=== PATIENT | female | born 1970 | race American Indian/Alaskan Native ===

== ENCOUNTER 2017-12-27 19:54 | Emergency (ER) | payer OTHER, BC ==
[2017-12-28] MEDS ORDERED: FLEXERIL PO ONE (00:09)
[2017-12-28] MEDS ORDERED: TORADOL IM ONE (00:09)
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
[2017-12-28 01:28] VITALS: BP 142/90
== END 2017-12-28 01:28 | disposition home or self-care (01) ==
LOC: ED 19:54
DX: S39.012A Strain of muscle, fascia and tendon of lower back, initial encounter (principal); V49.59XA Passenger injured in collision with other motor vehicles in traffic accident, initial encounter; X58.XXXA Exposure to other specified factors, initial encounter; Y93.89 Activity, other specified; Y92.89 Other specified places as the place of occurrence of the external cause; Y99.8 Other external cause status
CPT/HCPCS: 96372; 99282; J1885

== ENCOUNTER 2019-02-04 19:28 | Emergency (ER) | payer BC, OTHER ==
[2019-02-04 19:38] VITALS: BP 152/65
--- NOTE | 2019-02-04 19:41 | Event Note ---
ED Screening Note Date of service: 02/04/19 Time: 19:37 ED Screening Note: 48 y/o female comes in for rt knee giving out. No trauma. This initial assessment/diagnostic orders/clinical plan/treatment(s) is/are subject to change based on patients health status, clinical progression and re-assessment by fellow clinical providers in the ED. Further treatment and workup at subsequent clinical providers discretion. Patient/guardian urged not to elope from the ED as their condition may be serious if not clinically assessed and managed. Initial orders include:
[2019-02-04] MEDS ORDERED: ULTRAM PO ONE (19:58)
--- NOTE | 2019-02-04 20:14 | XRay Report ---
PROCEDURE: XR KNEE 3V RT TECHNIQUE: Right knee radiographs, AP, lateral, and sunrise views. HISTORY: rt knee keeps given out. COMPARISONS: None FINDINGS: Fracture (s) and/or Dislocation(s): None Alignment: Normal Joint space(s): Normal Soft tissues: Normal Bone mineralization: Normal Foreign bodies: None IMPRESSION: Normal Examination This document is electronically signed by Timo Smith MD., February 04 2019 08:12:26 PM ET
--- NOTE | 2019-02-04 20:21 | Emergency Department Report ---
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 there is no swelling or numbness no tingling none family MD Complaint: knee injury Onset/Timin -: year(s) Injury: Knee: Right Type of Injury: hyperextension Place: work Severity: moderate Severity scale (0 -10): 5 Improves With: NSAID Worsens With: weight bearing, movement, palpation Context: walking Associated Symptoms: swelling, ambulatory - Related Data Previous Rx's Medication Instructions Recorded Last Taken Type Cyclobenzaprine [Flexeril 10 MG 10 mg PO TID #15 tablet 12/28/17 Unknown Rx TAB] Albuterol Sulfate [Ventolin HFA] 2 puff IH Q4H PRN #1 hfa.aer.ad 07/06/18 Unknown Rx predniSONE [Deltasone] 3 tab PO QDAY 4 Days #12 tab 07/06/18 Unknown Rx Menthol/Camphor [[place] 1 applicatio TP BID PRN #1 tube 02/04/19 Unknown Rx Ointment] Naproxen [Naprosyn] 500 mg PO BID PRN #30 tablet 02/04/19 Unknown Rx Allergies Allergy/AdvReac Type Severity Reaction Status Date / Time acetaminophen [From Vicodin] Allergy Itching Verified 12/27/17 20:26 gentamicin Allergy Itching Verified 12/27/17 20:26 hydrocodone [From Vicodin] Allergy Itching Verified 12/27/17 20:26 latex Allergy Anaphylaxis Verified 12/27/17 20:27 ED Review of Systems ROS: Stated complaint: RT KNEE/DEHYDRATION Other details as noted in HPI Constitutional: denies: chills, fever Eyes: denies: eye pain, eye discharge, vision change ENT: denies: ear pain, throat pain Respiratory: denies: cough, shortness of breath, wheezing Cardiovascular: denies: chest pain, palpitations Endocrine: no symptoms reported Gastrointestinal: denies: abdominal pain, nausea, diarrhea Genitourinary: denies: urgency, dysuria, discharge Musculoskeletal: arthralgia, other (knee pain ). denies: back pain, joint swelling Skin: denies: rash, lesions Neurological: denies: headache, weakness, paresthesias Psychiatric: denies: anxiety, depression Hematological/Lymphatic: denies: easy bleeding, easy bruising ED Past Medical Hx - Past Medical History Previous Medical History?: Yes Hx Asthma: Yes - Surgical History Past Surgical History?: Yes Additional Surgical History: hysterectomy 2016 - Social History Smoking Status: Never Smoker Substance Use Type: Alcohol - Medications Home Medications: Home Medications Medication Instructions Recorded Confirmed Last Taken Type Cyclobenzaprine [Flexeril 10 MG 10 mg PO TID #15 tablet 12/28/17 Unknown Rx TAB] Albuterol Sulfate [Ventolin HFA] 2 puff IH Q4H PRN #1 hfa.aer.ad 07/06/18 Unknown Rx predniSONE [Deltasone] 3 tab PO QDAY 4 Days #12 tab 07/06/18 Unknown Rx Menthol/Camphor [[place] 1 applicatio TP BID PRN #1 tube 02/04/19 Unknown Rx Ointment] Naproxen [Naprosyn] 500 mg PO BID PRN #30 tablet 02/04/19 Unknown Rx ED Physical Exam - General Limitations: No Limitations General appearance: alert, in no apparent distress - Head Head exam: Present: atraumatic, normocephalic - Eye Eye exam: Present: normal appearance, PERRL, EOMI Pupils: Present: normal accommodation - ENT ENT exam: Present: mucous membranes moist - Neck Neck exam: Present: normal inspection, full ROM, lymphadenopathy - Respiratory Respiratory exam: Present: normal lung sounds bilaterally. Absent: respiratory distress, wheezes, stridor - Cardiovascular Cardiovascular Exam: Present: regular rate, normal rhythm. Absent: systolic murmur, diastolic murmur, rubs, gallop - GI/Abdominal GI/Abdominal exam: Present: soft, normal bowel sounds. Absent: distended, tenderness, rigid, bruit, hernia - Rectal Rectal exam: Present: deferred - Extremities Exam Extremities exam: Present: full ROM, tenderness, normal capillary refill. Absent: pedal edema, joint swelling, calf tenderness - Expanded Lower Extremity Exam Right Knee exam: Present: tenderness, pain w/ pronation/supination, full knee extension. Absent: swelling, abrasion, laceration, ecchymosis, deformity, crepidus, dislocation, erythema, effusion, posterior draw sign, pain/laxity with valgus, pain/laxity with varus Lower Leg exam: Present: full ROM. Absent: tenderness, swelling Ankle exam: Present: full ROM. Absent: tenderness, swelling Foot/Toe exam: Present: normal inspection, full ROM. Absent: tenderness, swelling Neuro vascular tendon exam: Absent: pulse deficit, motor deficit, sensory deficit, tendon deficit Gait: Positive: observed and normal - Back Exam Back exam: Present: normal inspection, full ROM. Absent: CVA tenderness (R), CVA tenderness (L), muscle spasm, paraspinal tenderness, vertebral tenderness, rash noted - Neurological Exam Neurological exam: Present: alert, oriented X3, CN II-XII intact, normal gait, reflexes normal. Absent: motor sensory deficit - Psychiatric Psychiatric exam: Present: normal affect, normal mood - Skin Skin exam: Present: warm, dry, intact, normal color. Absent: rash ED Course Vital Signs 02/04/19 19:36 Temperature 98.9 F Pulse Rate 64 Respiratory 18 Rate Blood Pressure 152/65 O2 Sat by Pulse 99 Oximetry ED Lower Extremity MDM - Radiology Data Radiology results: report reviewed, image reviewed interpreted by me: Ordering Physician: NUZHAT KNOTT Date of Service: 02/04/19 Procedure(s): XR knee 3V RT Accession Number(s): [id number] cc: NUZHAT KNOTT Fluoro Time In Minutes: PROCEDURE: XR KNEE 3V RT TECHNIQUE: Right knee radiographs, AP, lateral, and sunrise views. HISTORY: rt knee keeps given out. COMPARISONS: None FINDINGS: Fracture (s) and/or Dislocation(s): None Alignment: Normal Joint space(s): Normal Soft tissues: Normal Bone mineralization: Normal Foreign bodies: None IMPRESSION: Normal Examination This document is electronically signed by Timo Smith MD., February 04 2019 08:12:26 PM ET Transcribed By: [facility] Dictated By: TIMO SMITH Electronically Authenticated By: TIMO SMITH Signed Date/Time: 02/04/192013 DD/ 09 TD/TT: 02/04/192010 - Medical Decision Making Knee x-ray is normal. No fracture no soft tissue abnormality is stable on exam no catch no pop, no drawer NSAIDs.nsaid analgesic balm, ricr therapy follow up with pcp in 2-3 days return to ed if symptoms worsen. pt verbalized agreement and understanding of discharge plan. Critical care attestation.: If time is entered above; I have spent that time in minutes in the direct care of this critically ill patient, excluding procedure time. ED Disposition Clinical Impression: Knee strain Qualifiers: Encounter type: initial encounter Laterality: right Qualified Code(s): S86.911A - Strain of unspecified muscle(s) and tendon(s) at lower leg level, right leg, initial encounter Disposition: TO HOME OR SELFCARE Is pt being admited?: No Does the pt Need Aspirin: No Condition: Stable Instructions: Knee Exercises (GEN), Knee Sprain (ED), RICE Therapy (ED) Additional Instructions: hydrate as directed 8 glasse of water daily minimum Prescriptions: Naproxen [Naprosyn] 500 mg PO BID PRN #30 tablet PRN Reason: pain Menthol/Camphor [[place] Ointment] 1 applicatio TP BID PRN #1 tube PRN Reason: pain Referrals: DONNA HENRY MD [Staff Physician] - 3-5 Days [facility] [Outside] - 3-5 Days Forms: Work/School Release Form(ED) Time of Disposition: 20:29
== END 2019-02-04 20:52 | disposition home or self-care (01) ==
LOC: ED 19:28
DX: S86.911A Strain of unspecified muscle(s) and tendon(s) at lower leg level, right leg, initial encounter (principal); J45.909 Unspecified asthma, uncomplicated; Z90.710 Acquired absence of both cervix and uterus; Z88.1 Allergy status to other antibiotic agents; Z88.5 Allergy status to narcotic agent; Z91.040 Latex allergy status; W94.11XA Exposure to residence or prolonged visit at high altitude, initial encounter; Y93.01 Activity, walking, marching and hiking; Y92.69 Other specified industrial and construction area as the place of occurrence of the external cause; Y99.8 Other external cause status
CPT/HCPCS: 99283

== ENCOUNTER 2019-02-27 17:36 | Emergency (ER) | payer OTHER ==
[2019-02-27 18:24] VITALS: BP 162/88
[2019-02-27] MEDS ORDERED: TETRACAINE 0.5% OU ONE (18:24)
--- NOTE | 2019-02-27 18:24 | Event Note ---
ED Screening Note ED Screening Note: States a bug flew into her eye yesterday states dust flew into it today states she has been rubbing the eye right eye pain and erythema watery drainage no vision changes states she wears contacts, has them in still no PMHx allergy to hydrocodone and gentamicin This initial assessment/diagnostic orders/clinical plan/treatment(s) is/are subject to change based on patients health status, clinical progression and re- assessment by fellow clinical providers in the ED. Further treatment and workup at subsequent clinical providers discretion. Patient/guardian urged not to elope from the ED as their condition may be serious if not clinically assessed and managed. Initial orders include: needs wood lamp evaluation and visual acuity
[2019-02-27] MEDS ORDERED: FUL-GLO OP ONE (18:25)
--- NOTE | 2019-02-27 20:10 | Emergency Department Report ---
ED Eye Problem HPI - General Chief complaint: Eye Problems Stated complaint: BUG FLEW IN EYE Time Seen by Provider: 02/27/19 18:21 Source: patient Mode of arrival: Ambulatory Limitations: No Limitations - History of Present Illness Initial comments: Patient is a 48-year-old -[place] female with no past medical history who presents to the ED with complaint of acute onset severe right eye pain and photophobia and redness as well as purulent discharge after an insect accidentally flew into her right eye causing pain 24 hours ago. Patient states that she has been experiencing foreign body sensation in that eye and now has photophobia and blurry vision. Patient denies headache, vision loss, nausea, vomiting, fever, chills, cough, nasal and sinus congestion over dizziness. MD chief complaint: eye pain (RIGHT), eye redness, eye injury -: Sudden, hour(s) (24) Location: right eye Place: home If Injury: direct trauma (Iinsect entered right eye) Eye Symptoms: burning, redness, pain, foreign body sensation, discharge, photophobia Severity: severe Severity scale (0 -10): 7 If Pain, Quality: sharp, aching Consistency: constant Context: trauma (insect entered right eye), injury Associated Symptoms: none Treatments Prior to Arrival: irrigated eye - Related Data Patient Tetanus UTD: Yes Previous Rx's Medication Instructions Recorded Last Taken Type Cyclobenzaprine [Flexeril 10 MG 10 mg PO TID #15 tablet 12/28/17 Unknown Rx TAB] Albuterol Sulfate [Ventolin HFA] 2 puff IH Q4H PRN #1 hfa.aer.ad 07/06/18 Unknown Rx predniSONE [Deltasone] 3 tab PO QDAY 4 Days #12 tab 07/06/18 Unknown Rx Meloxicam [Mobic] 7.5 mg PO QDAY #30 tablet 02/04/19 Unknown Rx Menthol/Camphor [[place] 1 applicatio TP BID PRN #1 tube 02/04/19 Unknown Rx Ointment] Naproxen [Naprosyn] 500 mg PO BID PRN #30 tablet 02/04/19 Unknown Rx Ciprofloxacin HCl [Ciloxan] 1 - 2 drops OP Q4H #5 ml 02/27/19 Unknown Rx traMADol [Ultram] 50 mg PO Q6HR PRN #15 tablet 02/27/19 Unknown Rx Allergies Allergy/AdvReac Type Severity Reaction Status Date / Time acetaminophen [From Vicodin] Allergy Itching Verified 02/27/19 17:37 gentamicin Allergy Itching Verified 02/27/19 17:37 hydrocodone [From Vicodin] Allergy Itching Verified 02/27/19 17:37 latex Allergy Anaphylaxis Verified 02/27/19 17:37 ED Review of Systems ROS: Stated complaint: BUG FLEW IN EYE Other details as noted in HPI Constitutional: denies: chills, fever Eyes: eye pain (right), eye discharge (right), other (Irritated and painful right eye with purulent discharge). denies: vision change ENT: denies: ear pain, throat pain Respiratory: denies: cough, shortness of breath, SOB with exertion, wheezing Cardiovascular: denies: chest pain, palpitations Endocrine: no symptoms reported. denies: flushing, intolerance to cold, increased hunger, increased thirst, increased urine, unexplained weight gain Gastrointestinal: denies: abdominal pain, nausea, diarrhea Genitourinary: denies: urgency, dysuria, discharge Musculoskeletal: denies: back pain, joint swelling, arthralgia Skin: denies: rash, lesions Neurological: denies: headache, weakness, paresthesias Psychiatric: denies: anxiety, depression Hematological/Lymphatic: denies: easy bleeding, easy bruising ED Past Medical Hx - Past Medical History Previous Medical History?: Yes Hx Asthma: Yes - Surgical History Past Surgical History?: Yes Additional Surgical History: hysterectomy 2016 - Social History Smoking Status: Never Smoker Substance Use Type: Marijuana - Medications Home Medications: Home Medications Medication Instructions Recorded Confirmed Last Taken Type Cyclobenzaprine [Flexeril 10 MG 10 mg PO TID #15 tablet 12/28/17 Unknown Rx TAB] Albuterol Sulfate [Ventolin HFA] 2 puff IH Q4H PRN #1 hfa.aer.ad 07/06/18 Unknown Rx predniSONE [Deltasone] 3 tab PO QDAY 4 Days #12 tab 07/06/18 Unknown Rx Meloxicam [Mobic] 7.5 mg PO QDAY #30 tablet 02/04/19 Unknown Rx Menthol/Camphor [[place] 1 applicatio TP BID PRN #1 tube 02/04/19 Unknown Rx Ointment] Naproxen [Naprosyn] 500 mg PO BID PRN #30 tablet 02/04/19 Unknown Rx Ciprofloxacin HCl [Ciloxan] 1 - 2 drops OP Q4H #5 ml 02/27/19 Unknown Rx traMADol [Ultram] 50 mg PO Q6HR PRN #15 tablet 02/27/19 Unknown Rx ED Physical Exam - General Limitations: No Limitations General appearance: alert, in no apparent distress - Head Head exam: Present: atraumatic, normocephalic, normal inspection - Eye Eye exam: Present: normal appearance, PERRL, EOMI, other (Erythematous right conjunctiva and sclera with purulent discharge, and anterior corneal abrasion) Pupils: Present: normal accommodation - ENT ENT exam: Present: normal exam, normal orophraynx, mucous membranes moist, TM's normal bilaterally, normal external ear exam - Neck Neck exam: Present: normal inspection, full ROM - Respiratory Respiratory exam: Present: normal lung sounds bilaterally. Absent: respiratory distress, wheezes, rales, rhonchi, accessory muscle use, decreased breath sounds - Cardiovascular Cardiovascular Exam: Present: regular rate, normal rhythm, normal heart sounds. Absent: systolic murmur, diastolic murmur, rubs, gallop - GI/Abdominal GI/Abdominal exam: Present: soft, normal bowel sounds. Absent: distended, tenderness, guarding, rebound, hyperactive bowel sounds, hypoactive bowel sounds, organomegaly - Rectal Rectal exam: Present: deferred - Extremities Exam Extremities exam: Present: normal inspection, full ROM, normal capillary refill - Back Exam Back exam: Present: normal inspection, full ROM. Absent: CVA tenderness (L), muscle spasm, paraspinal tenderness, vertebral tenderness - Neurological Exam Neurological exam: Present: alert, oriented X3, CN II-XII intact, normal gait, reflexes normal - Psychiatric Psychiatric exam: Present: normal affect, normal mood - Skin Skin exam: Present: warm, dry, intact, normal color. Absent: rash ED Course Vital Signs 02/27/19 18:22 Temperature 98.6 F Pulse Rate 62 Respiratory 16 Rate Blood Pressure 162/88 [Right] O2 Sat by Pulse 100 Oximetry - Reevaluation(s) Reevaluation #1: 02/27/19 20:12 Patient is alert and oriented 3 and is not in distress but in pain. Tetracaine 0.5% ophthalmic solution drops were added to the right eye course local anesthesia, and on reevaluation, patient's pain was well controlled. Patient was treated for pain in the ED and Wood's lamp exam shows anterior right corneal abrasion with a significant right conjunctival and sclera erythema and purulent discharge. Patient was discharged home on antibiotic eyedrops and pain medications and [facility]. Patient is advised to return to the ED immediately if symptoms get worse. Otherwise patient is advised to follow up with her primary care physician in 3-5 days for reevaluation. ED Medical Decision Making - Medical Decision Making Patient is alert and oriented 3 and is not in distress but in pain. Tetracaine 0.5% ophthalmic solution drops were added to the right eye course local anesthesia, and on reevaluation, patient's pain was well controlled. Patient was treated for pain in the ED and Wood's lamp exam shows anterior right corneal abrasion with a significant right conjunctival and sclera erythema and purulent discharge. Patient was discharged home on antibiotic eyedrops and pain medications and referred [facility] locally for follow-up. Patient is advised to return to the ED immediately if symptoms get worse. Otherwise patient is advised to follow up with her primary care physician in 3-5 days for reevaluation. - Differential Diagnosis acute conjunctivitis; right eye injury; corneal abrasion, keratitis Critical care attestation.: If time is entered above; I have spent that time in minutes in the direct care of this critically ill patient, excluding procedure time. ED Disposition Clinical Impression: Injury of conjunctiva and corneal abrasion Qualifiers: Encounter type: initial encounter Laterality: right Qualified Code(s): S05.01XA - Injury of conjunctiva and corneal abrasion without foreign body, right eye, initial encounter Acute conjunctivitis of right eye Qualifiers: Acute conjunctivitis type: bacterial Qualified Code(s): H10.31 - Unspecified acute conjunctivitis, right eye Disposition: DC-01 TO HOME OR SELFCARE Is pt being admited?: No Does the pt Need Aspirin: No Condition: Stable Instructions: Conjunctivitis (ED), Corneal Abrasion (ED) Additional Instructions: Take medications with food, apply the antibiotic eyedrops to the affected eye as advised. Follow up with the [facility] as advised, and follow up with regular primary care physician 5-7 days for reevaluation. Return to the ED immediately if symptoms get worse. Prescriptions: Ciprofloxacin HCl [Ciloxan] 1 - 2 drops OP Q4H #5 ml traMADol [Ultram] 50 mg PO Q6HR PRN #15 tablet PRN Reason: Pain Referrals: ZHANG REYES MD [Staff Physician] - 3-5 Days [facility] [Outside] - 3-5 Days Time of Disposition: 20:18 Print Language: GUATEMALAN
[2019-02-27] MEDS ORDERED: ULTRAM PO ONE (20:25)
== END 2019-02-27 20:39 | disposition home or self-care (01) ==
LOC: ED 17:36
DX: S05.01XA Injury of conjunctiva and corneal abrasion without foreign body, right eye, initial encounter (principal); H10.31 Unspecified acute conjunctivitis, right eye; Z79.899 Other long term (current) drug therapy; Z88.8 Allergy status to other drugs, medicaments and biological substances; Z88.1 Allergy status to other antibiotic agents; Z91.040 Latex allergy status; X58.XXXA Exposure to other specified factors, initial encounter; Y93.89 Activity, other specified; Y92.89 Other specified places as the place of occurrence of the external cause; Y99.8 Other external cause status
CPT/HCPCS: 99282

== ENCOUNTER 2019-09-16 18:19 | Emergency (ER) | payer OTHER ==
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
[2019-09-16 21:11] VITALS: BP 141/79
--- NOTE | 2019-09-16 21:35 | XRay Report ---
EXAMINATION: Left shoulder radiograph, 3 views CLINICAL INFORMATION: Left shoulder pain after trauma COMPARISON: None. FINDINGS: There is no evidence of acute fracture or dislocation of the left shoulder. Signer Name: Angela Mcdaniels MD Signed: 09/16/2019 9:31 PM Workstation Name: [id number]
--- NOTE | 2019-09-16 22:11 | Emergency Department Report ---
HPI - General Chief Complaint: Shoulder Injury Time Seen by Provider: 09/16/19 21:57 - HPI HPI: 48-year-old female presents to the emergency department with a complaint of some pain to the left arm that starts around the armpit and goes d own to the fingers middle fingers. 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 It hurts to move at the shoulder and elbow joints, as well as to move the middle 2 fingers. No past mental history. She has not taken anything for her symptoms prior to presentation. She is right-hand dominant. ED Past Medical Hx - Past Medical History Hx Asthma: Yes - Surgical History Additional Surgical History: hysterectomy 2016 - Social History Smoking Status: Never Smoker Substance Use Type: None, Marijuana - Medications Home Medications: Home Medications Medication Instructions Recorded Confirmed Last Taken Type Cyclobenzaprine [Flexeril] 10 mg PO TID PRN #10 tablet 05/08/19 Unknown Rx predniSONE [Deltasone] 20 mg PO DAILY #5 tablet 05/08/19 Unknown Rx ED Review of Systems ROS: Stated complaint: POSS BROKEN LT ARM Other details as noted in HPI Comment: All other systems reviewed and negative Constitutional: denies: chills, fever Musculoskeletal: arthralgia, myalgia. denies: joint swelling Skin: denies: rash, lesions Neurological: denies: numbness, paresthesias Physical Exam - Physical Exam Vital Signs: Vital Signs 09/16/19 20:52 Temperature 98.7 F Pulse Rate 63 Respiratory 16 Rate Blood Pressure 141/79 O2 Sat by Pulse 100 Oximetry Physical Exam: GENERAL: The patient is well-developed well-nourished. HEENT: Normocephalic. Atraumatic. Patient has moist mucous membranes. EYES: Extraocular motions are intact. NECK: Supple. Trachea is midline. CHEST/LUNGS: Clear to auscultation. There is no respiratory distress noted. HEART/CARDIOVASCULAR: Regular. There is no tachycardia. There is no murmur. ABDOMEN: There is no abdominal distention. SKIN:Skin is warm and dry. . NEURO: The patient is awake, alert, and oriented. The patient is cooperative. The patient has no focal neurologic deficits. Normal speech. MUSCULOSKELETAL: There is some tenderness palpation to the inside of the left upper arm, midforearm and with manipulation of the left middle and ring fingers, but no obvious deformity. Radial pulse +2 over 4 and capillary refill less than 2 seconds. ED Course Vital Signs 09/16/19 20:52 Temperature 98.7 F Pulse Rate 63 Respiratory 16 Rate Blood Pressure 141/79 O2 Sat by Pulse 100 Oximetry ED Medical Decision Making - Radiology Data Radiology results: image reviewed interpreted by me: X-ray left shoulder does not show any fracture, dislocation, or any acute process. - Medical Decision Making This patient presents with some complaint of pain that starts in the left upper arm, almost towards the armpit, and radiates down the arm. No obvious deformity. She appears to have full range of motion. She is neurovascularly intact. X-ray of the left shoulder was done through triage does not show any fracture, dislocation, or any acute process. She has some mild tenderness to palpation around the mid left forearm but refuses any further x-ray imaging and feels that there is no fracture. She was placed in a sling and given a referral for an orthopedist. She will return to the ER with any worsening of her symptoms or any acute distress. - Differential Diagnosis fracture, dislocation, nerve impingement, contusion, sprain Critical Care Time: No Critical care attestation.: If time is entered above; I have spent that time in minutes in the direct care of this critically ill patient, excluding procedure time. ED Disposition Clinical Impression: Left arm pain, Arm sprain Disposition: TO HOME OR SELFCARE Is pt being admited?: No Condition: Stable Instructions: Arthralgia (ED) Additional Instructions: All up with a primary care physician in the next few days. I am also given you a referral for 2 different local orthopedic groups, Dr. Sanchez and [facility], to follow up regarding your arm pain. Return to the emergency Department with any worsening of your symptoms or any acute distress. Referrals: NARCISA POOLE MD [Primary Care Provider] - 2-3 Days DONNA SANCHEZ MD [Staff Physician] - 2-3 Days [facility] [Provider Group] - 2-3 Days Time of Disposition: 22:12
== END 2019-09-16 22:23 | disposition home or self-care (01) ==
LOC: ED 18:19
DX: S43.402A Unspecified sprain of left shoulder joint, initial encounter (principal); J45.909 Unspecified asthma, uncomplicated; Z90.710 Acquired absence of both cervix and uterus; F12.10 Cannabis abuse, uncomplicated; Z79.899 Other long term (current) drug therapy; Z88.6 Allergy status to analgesic agent; Z88.1 Allergy status to other antibiotic agents; Z88.5 Allergy status to narcotic agent; Z91.040 Latex allergy status; X58.XXXA Exposure to other specified factors, initial encounter; Y93.89 Activity, other specified; Y92.89 Other specified places as the place of occurrence of the external cause; Y99.8 Other external cause status

== ENCOUNTER 2019-09-30 18:10 | Emergency (ER) | payer OTHER ==
[2019-09-30 18:23] VITALS: BP 149/88
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
== END 2019-09-30 21:46 | disposition home or self-care (01) ==
LOC: ED 18:10
DX: M54.2 Cervicalgia (principal); R51 Headache; Z88.8 Allergy status to other drugs, medicaments and biological substances; V49.49XA Driver injured in collision with other motor vehicles in traffic accident, initial encounter; Y93.89 Activity, other specified; Y92.410 Unspecified street and highway as the place of occurrence of the external cause; Y99.8 Other external cause status
CPT/HCPCS: 99282

== ENCOUNTER 2020-04-05 16:29 | Emergency (ER) | payer OTHER ==
--- NOTE | 2020-04-05 19:16 | Event Note ---
ED Screening Note Date of service: 04/05/20 Time: 19:16 ED Screening Note: c/o right knee pain x today states knee suddenly gave out while walking anterior knee pain This initial assessment/diagnostic orders/clinical plan/treatment(s) is/are subject to change based on patients health status, clinical progression and re- assessment by fellow clinical providers in the ED. Further treatment and workup at subsequent clinical providers discretion. Patient/guardian urged not to elope from the ED as their condition may be serious if not clinically assessed and managed. Initial orders include: xr
[2020-04-05 19:34] VITALS: BP 138/82
--- NOTE | 2020-04-05 19:54 | XRay Report ---
Right knee 3 views INDICATION: Right knee pain. IMPRESSION: No fracture or subluxation of the right knee is identified. Signer Name: Miguel Angel Pierre MD Signed: 04/05/2020 7:50 PM Workstation Name: [id number]
[2020-04-05] MEDS ORDERED: NAPROXEN 500 MG TAB PO ONE (21:34)
--- NOTE | 2020-04-05 21:54 | Emergency Department Report ---
ED Lower Extremity HPI - General Chief Complaint: Extremity Injury, Lower Stated Complaint: RT KNEE PAIN Time Seen by Provider: 04/05/20 19:15 Source: patient Mode of arrival: Ambulatory Limitations: Physical Limitation - History of Present Illness Initial Comments: This is a 49-year-old female nontoxic, well nourished in appearance, no acute signs of distress presents to the ED with c/o of right knee pain 1 day. Patient stated that she injuried her knee today but walking. Patient denies any other trauma. Patient denies any numbness, tingling, fever, chills, nausea, vomiting, chest pain, shortness of breath, headache, stiff neck. Patient denies any joint swelling or joint redness. Patient denies decreased range of motion. Patient stated has decreased gait due to pain. Patient stated allergies to acetaminophen, gentaminc, and hydrocodone, and latex. MD Complaint: knee injury -: days(s) Injury: Knee: Right Severity: mild Severity scale (0 -10): 8 Improves With: immobilization Worsens With: weight bearing, movement, palpation Associated Symptoms: able to partially bear weight. denies: snap/pop sensation, swelling, numbness, tingling, unable to bear weight - Related Data Previous Rx's Medication Instructions Recorded Last Taken Type Cyclobenzaprine [Flexeril] 10 mg PO TID PRN #10 tablet 05/08/19 Unknown Rx predniSONE [Deltasone] 20 mg PO DAILY #5 tablet 05/08/19 Unknown Rx Naproxen 500 mg PO Q12H PRN #12 tablet 04/05/20 Unknown Rx Allergies Allergy/AdvReac Type Severity Reaction Status Date / Time acetaminophen [From Vicodin] Allergy Itching Verified 04/05/20 19:18 gentamicin Allergy Itching Verified 04/05/20 19:18 hydrocodone [From Vicodin] Allergy Itching Verified 04/05/20 19:18 latex Allergy Anaphylaxis Verified 04/05/20 19:18 ED Review of Systems ROS: Stated complaint: RT KNEE PAIN Other details as noted in HPI Constitutional: denies: chills, fever Eyes: denies: eye pain, eye discharge, vision change ENT: denies: ear pain, throat pain Respiratory: denies: cough, shortness of breath, wheezing Cardiovascular: denies: chest pain, palpitations Endocrine: no symptoms reported Gastrointestinal: denies: abdominal pain, nausea, diarrhea Genitourinary: denies: urgency, dysuria, discharge Musculoskeletal: denies: back pain, joint swelling, arthralgia Skin: denies: rash, lesions Neurological: denies: headache, weakness, paresthesias Psychiatric: denies: anxiety, depression Hematological/Lymphatic: denies: easy bleeding, easy bruising ED Past Medical Hx - Past Medical History Hx Asthma: Yes - Surgical History Additional Surgical History: hysterectomy 2016 - Social History Smoking Status: Never Smoker Substance Use Type: Alcohol - Medications Home Medications: Home Medications Medication Instructions Recorded Confirmed Last Taken Type Cyclobenzaprine [Flexeril] 10 mg PO TID PRN #10 tablet 05/08/19 Unknown Rx predniSONE [Deltasone] 20 mg PO DAILY #5 tablet 05/08/19 Unknown Rx Naproxen 500 mg PO Q12H PRN #12 tablet 04/05/20 Unknown Rx ED Physical Exam - General Limitations: Physical Limitation General appearance: alert, in no apparent distress - Head Head exam: Present: atraumatic, normocephalic - Neck Neck exam: Present: normal inspection, full ROM. Absent: tenderness, meningismus, lymphadenopathy - Extremities Exam Extremities exam: Present: normal inspection, full ROM, tenderness, normal capillary refill. Absent: joint swelling, calf tenderness - Expanded Lower Extremity Exam Right Hip exam: Present: normal inspection, full ROM. Absent: tenderness, swelling Upper Leg exam: Present: normal inspection, full ROM. Absent: tenderness, swelling Knee exam: Present: normal inspection, full ROM, tenderness, full knee extension. Absent: swelling, abrasion, laceration, ecchymosis, deformity, crepidus, dislocation, erythema, effusion, pain w/ pronation/supination, posterior draw sign, pain/laxity with valgus, pain/laxity with varus Lower Leg exam: Present: normal inspection, full ROM. Absent: tenderness, swelling Ankle exam: Present: normal inspection, full ROM. Absent: tenderness, swelling Foot/Toe exam: Present: normal inspection, full ROM. Absent: tenderness, swelling Neuro vascular tendon exam: Present: no vascular compromise Gait: Positive: observed and limited by pain - Back Exam Back exam: Present: normal inspection, full ROM. Absent: tenderness, CVA tenderness (R), CVA tenderness (L), muscle spasm, paraspinal tenderness, vertebral tenderness, rash noted - Neurological Exam Neurological exam: Present: alert, oriented X3, normal gait - Psychiatric Psychiatric exam: Present: normal affect, normal mood - Skin Skin exam: Present: warm, dry, intact, normal color. Absent: rash ED Course Vital Signs 04/05/20 19:17 Temperature 98.1 F Pulse Rate 66 Respiratory 18 Rate Blood Pressure 138/82 O2 Sat by Pulse 100 Oximetry - Reevaluation(s) Reevaluation #1: 04/05/20 21:52 Patient is speaking in full sentences with no signs of distress noted. ED Lower Extremity MDM - Radiology Data Referring Physician: VERA BLACKMAN Patient Name: DANI BUCKNER Date of : 1970 Sex: Female Report Date: 2020-04-05 Report Status: Finalized [facility] [address] [place] [address] XRay Report Signed Patient: DANI BUCKNER MR#: [id number] 9 : 1970 Acct:[id number] Age/Sex: 49 / F ADM Date: 04/05/20 Loc: ED Attending Dr: Ordering Physician: VERA BLACKMAN Date of Service: 04/05/20 Procedure(s): XR knee 3V RT Accession Number(s): [id number] cc: VERA BLACKMAN Fluoro Time In Minutes: Right knee 3 views INDICATION: Right knee pain. IMPRESSION: No fracture or subluxation of the right knee is identified. Signer Name: Miguel Angel Pierre MD Signed: 04/05/2020 7:50 PM Workstation Name: [id number] Transcribed By: BC Dictated By: Miguel Angel Pierre MD Electronically Authenticated By: Miguel Angel Pierre MD Signed Date/Time: 04/05/201949 DD/ 48 TD/TT: - Medical Decision Making This is a 49-year-old female that presents with right knee strain. Patient is stable and was examined by me. I referred patient to an orthopedic doctor for further evaluation for possible MRI. X-ray has been obtained and dictated by the radiologist. Patient is notified of the x-ray report with noted by the patient. Patient does have normal gait with no tenderness and no joint swelling. No ecchymosis. no joint redness or swelling. Not warm to touch. No signs of cellulites present. Patient received a knee immobilize and crutches and was educated by RN how to use crutches. Patient was instructed to RICE therapy. Patient received Nparoxen for pain. Patient is discharged with Naproxen. At time of discharge, the patient does not seem toxic or ill in appearance. No acute signs of distress noted. Patient agrees to discharge treatment plan of care. No further questions noted by the patient. Critical care attestation.: If time is entered above; I have spent that time in minutes in the direct care of this critically ill patient, excluding procedure time. ED Disposition Clinical Impression: Strain of right knee Qualifiers: Encounter type: initial encounter Qualified Code(s): S86.911A - Strain of unspecified muscle(s) and tendon(s) at lower leg level, right leg, initial encounter Disposition: TO HOME OR SELFCARE Is pt being admited?: No Does the pt Need Aspirin: No Condition: Stable Instructions: Knee Pain (ED), Knee Immobilizer (ED), Crutch Instructions (ED), RICE Therapy (ED) Additional Instructions: Follow-up with a orthopedic doctor in 3-5 days or if symptoms worsen and continue return to emergency room as soon as possible. No physical activity that extremity until cleared by orthopedic doctor Prescriptions: Naproxen 500 mg PO Q12H PRN #12 tablet PRN Reason: Pain , Severe (7-10) Referrals: [facility], [Primary Care Provider] - 3-5 Days DONNA HENRY MD [Staff Physician] - 3-5 Days Forms: Work/School Release Form(ED) Time of Disposition: 21:55
== END 2020-04-05 22:45 | disposition home or self-care (01) ==
LOC: ED 16:29
DX: S86.911A Strain of unspecified muscle(s) and tendon(s) at lower leg level, right leg, initial encounter (principal); J45.909 Unspecified asthma, uncomplicated; Z90.710 Acquired absence of both cervix and uterus; Z79.899 Other long term (current) drug therapy; Z91.040 Latex allergy status; Z88.8 Allergy status to other drugs, medicaments and biological substances; X58.XXXA Exposure to other specified factors, initial encounter; Y93.89 Activity, other specified; Y92.89 Other specified places as the place of occurrence of the external cause; Y99.8 Other external cause status

== ENCOUNTER 2020-05-19 05:38 | Emergency (ER) | payer OTHER ==
[2020-05-19 06:04] VITALS: BP 116/62
== END 2020-05-19 08:25 | disposition left against medical advice (07) ==
LOC: ED 05:38
DX: M54.5 Low back pain (principal); Z53.21 Procedure and treatment not carried out due to patient leaving prior to being seen by health care provider

== ENCOUNTER 2020-12-15 12:52 | Emergency (ER) | payer OTHER ==
[2020-12-15 13:51] VITALS: BP 148/73
--- NOTE | 2020-12-15 14:37 | Emergency Department Report ---
ED Back Pain/Injury HPI - General Chief Complaint: Back Pain/Injury Stated Complaint: BACK PAIN Time Seen by Provider: 12/15/20 13:53 Source: patient Limitations: No Limitations - History of Present Illness Initial Comments: Patient is a 50-year-old female presents emergency room complaints of right lower back pain that radiates down her right leg that began earlier today. 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 She denies falling onto the ground or any significant trauma. She denies any fever, nausea, vomiting, diarrhea, abdominal pain, urinary symptoms, numbness, weakness, bowel or bladder incontinence. Past medical history of asthma. She states that she had a hysterectomy. Allergy to hydrocodone, gentamicin, latex, adhesive tape. - Related Data Previous Rx's Medication Instructions Recorded Last Taken Type Cyclobenzaprine [Flexeril] 10 mg PO TID PRN #10 tablet 05/08/19 Unknown Rx predniSONE [Deltasone] 20 mg PO DAILY #5 tablet 05/08/19 Unknown Rx Naproxen 500 mg PO Q12H PRN #12 tablet 04/05/20 Unknown Rx Menthol/Camphor [[place] Gypsy 1 applicatio TP BID #18 oint...g. 12/15/20 Unknown Rx Ointment] Naproxen [EC-Naprosyn] 500 mg PO BID PRN #14 tablet. 12/15/20 Unknown Rx methOCARBAMOL [Robaxin TAB] 500 mg PO BID PRN #14 tab 12/15/20 Unknown Rx Allergies Allergy/AdvReac Type Severity Reaction Status Date / Time acetaminophen [From Vicodin] Allergy Itching Verified 12/15/20 13:52 gentamicin Allergy Itching Verified 12/15/20 13:52 hydrocodone [From Vicodin] Allergy Itching Verified 12/15/20 13:52 latex Allergy Anaphylaxis Verified 12/15/20 13:52 adhesive tape AdvReac Itching Verified 12/15/20 13:52 ED Review of Systems ROS: Stated complaint: BACK PAIN Other details as noted in HPI Comment: All other systems reviewed and negative ED Past Medical Hx - Past Medical History Hx Asthma: Yes Additional medical history: Right Knee Injury - Surgical History Additional Surgical History: hysterectomy, Tubal Ligation, - Social History Smoking Status: Never Smoker Substance Use Type: None - Medications Home Medications: Home Medications Medication Instructions Recorded Confirmed Last Taken Type Cyclobenzaprine [Flexeril] 10 mg PO TID PRN #10 tablet 05/08/19 Unknown Rx predniSONE [Deltasone] 20 mg PO DAILY #5 tablet 05/08/19 Unknown Rx Naproxen 500 mg PO Q12H PRN #12 tablet 04/05/20 Unknown Rx Menthol/Camphor [[place] Gypsy 1 applicatio TP BID #18 oint...g. 12/15/20 Unknown Rx Ointment] Naproxen [EC-Naprosyn] 500 mg PO BID PRN #14 tablet.dr 12/15/20 Unknown Rx methOCARBAMOL [Robaxin TAB] 500 mg PO BID PRN #14 tab 12/15/20 Unknown Rx ED Physical Exam - General Limitations: No Limitations General appearance: alert, in no apparent distress - Head Head exam: Present: atraumatic, normocephalic - Eye Eye exam: Present: normal appearance - ENT ENT exam: Present: mucous membranes moist - Neck Neck exam: Present: normal inspection, full ROM. Absent: tenderness - Respiratory Respiratory exam: Present: normal lung sounds bilaterally. Absent: respiratory distress, wheezes, rales, rhonchi, stridor, chest wall tenderness, accessory muscle use, decreased breath sounds, prolonged expiratory - Cardiovascular Cardiovascular Exam: Present: regular rate, normal rhythm, normal heart sounds. Absent: systolic murmur, diastolic murmur, rubs, gallop - Back Exam Back exam: Present: normal inspection, full ROM, paraspinal tenderness (righht sided lumbar paraspinal muscular ttp, no midline C-spine, T-spine or L-spine ttp, no step offs, no deformities). Absent: vertebral tenderness - Neurological Exam Neurological exam: Present: alert, oriented X3, CN II-XII intact, normal gait. Absent: motor sensory deficit - Psychiatric Psychiatric exam: Present: normal affect, normal mood - Skin Skin exam: Present: warm, dry, intact ED Course Vital Signs 12/15/20 13:48 Temperature 98.2 F Pulse Rate 63 Respiratory 20 Rate Blood Pressure 148/73 O2 Sat by Pulse 95 Oximetry ED Medical Decision Making - Radiology Data Radiology results: report reviewed Ordering Physician: NUZHAT QUEZADA Date of Service: 12/15/20 Procedure(s): XR spine lumbosacral 2-3V Accession Number(s): [id number] cc: NUZHAT QUEZADA Fluoro Time In Minutes: XR spine lumbosacral 2-3V HISTORY: low back pain COMPARISON: None. TECHNIQUE: 3 view(s) of the lumbar spine obtained. FINDINGS: Vertebrae: Minimal leftward curvature of the spine. No listhesis. Vertebral body heights are preserved. Spondylosis:Disc space heights are preserved. IMPRESSION: 1. No significant abnormality of the lumbar spine. Signer Name: Jabari Edge MD Signed: 12/15/2020 2:55 PM Workstation Name: [id number] Transcribed By: CS Dictated By: Jabari Edge MD Electronically Authenticated By: Jabari Edge MD Signed Date/Time: 12/15/201454 DD/ 54 TD/TT: Print - Medical Decision Making Patient is a 50-year-old female presents emergency room complaints of right lower back pain that radiates down her right leg that began earlier today. 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 She denies falling onto the ground or any significant trauma. She denies any fever, nausea, vomiting, diarrhea, abdominal pain, urinary symptoms, numbness, weakness, bowel or bladder incontinence. Past medical history of asthma. She states that she had a hysterectomy. Allergy to hydrocodone, gentamicin, latex, adhesive tape. VSS. on exam: righht sided lumbar paraspinal muscular ttp, no midline C-spine, T-spine or L-spine ttp, no step offs, no deformities, no focal neuro deficits. XR lumbar spine: 1. No significant abnormality of the lumbar spine. This has resulted patient answered questions. Patient has had no significant trauma. She is ambulatory without difficulty. No midline tenderness, no step-offs, no deformities, no focal neuro deficits. Symptoms most consistent with lumbar strain vs sciatica. Advised patient Please use medication as prescribed. Do not drive or operate machinery while taking muscle relaxer Robaxin. May use ice pack, heating pad, rest, and epsom salt bath. Follow-up with a primary care doctor. Follow-up with orthopedic doctor. Return to emergency room for new or worsening symptoms. Critical care attestation.: If time is entered above; I have spent that time in minutes in the direct care of this critically ill patient, excluding procedure time. ED Disposition Clinical Impression: Low back pain Qualifiers: Chronicity: acute Back pain laterality: right Sciatica presence: with sciatica Sciatica laterality: sciatica of right side Qualified Code(s): M54.41 - Lumbago with sciatica, right side Disposition: TO HOME OR SELFCARE Is pt being admited?: No Does the pt Need Aspirin: No Condition: Stable Instructions: Acute Back Pain, Adult, Sciatica Additional Instructions: Please use medication as prescribed. Do not drive or operate machinery while taking muscle relaxer Robaxin. May use ice pack, heating pad, rest, and epsom s alt bath. Follow-up with a primary care doctor. Follow-up with orthopedic doctor. Return to emergency room for new or worsening symptoms. Prescriptions: Naproxen [EC-Naprosyn] 500 mg PO BID PRN #14 tablet.dr PRN Reason: pain methOCARBAMOL [Robaxin TAB] 500 mg PO BID PRN #14 tab PRN Reason: pain Menthol/Camphor [[place] Gypsy Ointment] 1 applicatio TP BID #18 oint...g. Referrals: GARRET ARIZA MD [Staff Physician] - 3-5 Days [facility] [Provider Group] - 3-5 Days [facility] [Provider Group] - 3-5 Days Time of Disposition: 15:03 Print Language: KINYARWANDA
--- NOTE | 2020-12-15 15:00 | XRay Report ---
XR spine lumbosacral 2-3V HISTORY: low back pain COMPARISON: None. TECHNIQUE: 3 view(s) of the lumbar spine obtained. FINDINGS: Vertebrae: Minimal leftward curvature of the spine. No listhesis. Vertebral body heights are preserve d. Spondylosis:Disc space heights are preserved. IMPRESSION: 1. No significant abnormality of the lumbar spine. Signer Name: Jabari Edge MD Signed: 12/15/2020 2:55 PM Workstation Name: [id number]
== END 2020-12-15 16:41 | disposition home or self-care (01) ==
LOC: ED 12:52
DX: M54.5 Low back pain (principal); J45.909 Unspecified asthma, uncomplicated; Z79.899 Other long term (current) drug therapy; Z91.040 Latex allergy status; Z88.8 Allergy status to other drugs, medicaments and biological substances; Z90.710 Acquired absence of both cervix and uterus; Z98.51 Tubal ligation status
CPT/HCPCS: 72100

== ENCOUNTER 2021-12-12 08:19 | Emergency (ER) | payer OTHER ==
[2021-12-12 08:38] VITALS: BP 118/75
--- NOTE | 2021-12-12 10:58 | Emergency Department Report ---
ED General Adult HPI - General Chief complaint: Extremity Problem,Nontraumatic Stated complaint: LEFT SWOLLEN HAND PUI?: No Time Seen by Provider: 12/12/21 10:55 Source: patient Mode of arrival: Ambulatory Limitations: No Limitations - History of Present Illness Initial comments: 51-year-old -[place] female presents to the emergency room complaining of swollen left hand. Patient denies any injury and states she thinks is her arthritis. Patient states that she has taken nothing for her symptoms. Patient states that she is allergic to ibuprofen Tylenol hydrocodone. In review of patient's chart she was recently prescribed naproxen for her back pain that she came in for in 2020. Patient states that when we will refer her to providers that they are are booked up. Patient is for [facility] and states that she has doctors down there. Onset/Timin -: days(s) Location: upper extremity Severity scale (0 -10): 6 Quality: aching Consistency: constant Improves with: none, movement Worsens with: movement Associated Symptoms: denies other symptoms - Related Data Previous Rx's Medication Instructions Recorded Last Taken Type Cyclobenzaprine [Flexeril] 10 mg PO TID PRN #10 tablet 05/08/19 Unknown Rx predniSONE [Deltasone] 20 mg PO DAILY #5 tablet 05/08/19 Unknown Rx Naproxen 500 mg PO Q12H PRN #12 tablet 04/05/20 Unknown Rx Menthol/Camphor [[place] Mascot 1 applicatio TP BID #18 oint...g. 12/15/20 Unknown Rx Ointment] methOCARBAMOL [Robaxin TAB] 500 mg PO BID PRN #14 tab 12/15/20 Unknown Rx Naproxen [EC-Naprosyn] 500 mg PO BID PRN #14 tablet. 12/12/21 Unknown Rx Allergies Allergy/AdvReac Type Severity Reaction Status Date / Time acetaminophen [From Vicodin] Allergy Itching Verified 12/15/20 13:52 gentamicin Allergy Itching Verified 12/15/20 13:52 hydrocodone [From Vicodin] Allergy Itching Verified 12/15/20 13:52 latex Allergy Anaphylaxis Verified 12/15/20 13:52 adhesive tape AdvReac Itching Verified 12/15/20 13:52 ED Review of Systems ROS: Stated complaint: LEFT SWOLLEN HAND Other details as noted in HPI Comment: All other systems reviewed and negative ED Past Medical Hx - Past Medical History Hx Asthma: Yes Additional medical history: Right Knee Injury - Surgical History Additional Surgical History: hysterectomy, Tubal Ligation, - Social History Smoking Status: Never Smoker Substance Use Type: None - Medications Home Medications: Home Medications Medication Instructions Recorded Confirmed Last Taken Type Cyclobenzaprine [Flexeril] 10 mg PO TID PRN #10 tablet 05/08/19 Unknown Rx predniSONE [Deltasone] 20 mg PO DAILY #5 tablet 05/08/19 Unknown Rx Naproxen 500 mg PO Q12H PRN #12 tablet 04/05/20 Unknown Rx Menthol/Camphor [[place] Mascot 1 applicatio TP BID #18 oint...g. 12/15/20 Unknown Rx Ointment] methOCARBAMOL [Robaxin TAB] 500 mg PO BID PRN #14 tab 12/15/20 Unknown Rx Naproxen [EC-Naprosyn] 500 mg PO BID PRN #14 tablet. 12/12/21 Unknown Rx ED Physical Exam - General Limitations: No Limitations General appearance: alert, in no apparent distress - Head Head exam: Present: atraumatic, normocephalic - Neck Neck exam: Present: normal inspection. Absent: full ROM - Respiratory Respiratory exam: Absent: respiratory distress - Cardiovascular Cardiovascular Exam: Present: regular rate - Expanded Upper Extremity Exam Left Hand Wrist exam: Present: full ROM, tenderness, swelling (Mild), deformity (Patient has large metacarpal joint of the first PIP joint with mild swelling) - Neurological Exam Neurological exam: Present: alert, oriented X3, normal gait - Psychiatric Psychiatric exam: Present: normal affect, normal mood - Skin Skin exam: Present: warm, dry, intact, normal color. Absent: rash ED Course Vital Signs 12/12/21 08:35 Temperature 97.8 F Pulse Rate 70 Respiratory 18 Rate Blood Pressure 118/75 [Right] O2 Sat by Pulse 100 Oximetry ED Medical Decision Making - Medical Decision Making 51-year-old -[place] female presents to the emergency room complaining of swollen left hand. Patient denies any injury and states she thinks is her arthritis. Patient states that she has taken nothing for her symptoms. Patient states that she is allergic to ibuprofen Tylenol hydrocodone. In review of patient's chart she was recently prescribed naproxen for her back pain that she came in for in 2020. Patient states that when we will refer her to providers that they are are booked up. Patient is for [facility] and states that she has doctors down there. Patient was offered naproxen she refuses. 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 Critical care attestation.: If time is entered above; I have spent that time in minutes in the direct care of this critically ill patient, excluding procedure time. ED Disposition Clinical Impression: Left hand pain, Swelling of joint, hand, left Disposition: HOME / SELF CARE / HOMELESS Is pt being admited?: No Does the pt Need Aspirin: No Condition: Stable Instructions: Hand Pain Additional Instructions: Please follow-up with your primary care provider or orthopedist provider Prescriptions: Naproxen [EC-Naprosyn] 500 mg PO BID PRN #14 tablet.dr CHAVEZ Reason: pain Referrals: GARRET ARIZA MD [Primary Care Provider] - 3-5 Days Time of Disposition: 11:02
== END 2021-12-12 11:18 | disposition home or self-care (01) ==
LOC: ED 08:19
DX: M79.642 Pain in left hand (principal); R22.32 Localized swelling, mass and lump, left upper limb; Z91.040 Latex allergy status; Z88.5 Allergy status to narcotic agent
CPT/HCPCS: 99282